=== PATIENT | female | born 1985 | race Caucasian/White ===

== ENCOUNTER 2016-11-16 16:38 | Emergency (ER) | payer MEDICAID ==
[2016-11-16 17:08] VITALS: BP 113/71
--- NOTE | 2016-11-16 17:17 | ER Document Report ---
ED Medical Screen (RME) - General Stated Complaint: RIGHT LEG PAIN, SWELLING Time seen by provider: 17:15 Mode of Arrival: Ambulatory Information source: Patient Notes: 31-year-old female presents to ED for pain in her right lower leg. She was out doing yard work and playing football with her son when she noticed a large blue area on her lower leg was very painful. The large bubble type area is gone but she still has a bruise swelling and pain to the right lower leg. Refuses Tylenol or Motrin at this time. Will apply a Anson wrap.. TRAVEL OUTSIDE OF THE U[place] IN LAST 30 DAYS: No - Related Data Allergies/Adverse Reactions: Penicillins Allergy (Verified 12/21/15 14:04) Past Medical History Musculoskeltal Medical History: Reports Hx Arthritis Past Surgical History: Reports: Hx Section - X2 Physical Exam - Vital signs Vitals: Temp Pulse Resp BP Pulse Ox 98.6 F 97 14 113/71 98 11/16/16 17:07 11/16/16 17:07 11/16/16 17:07 11/16/16 17:07 11/16/16 17:07 Course - Vital Signs Vital signs: Temp Pulse Resp BP Pulse Ox 98.6 F 97 14 113/71 98 11/16/16 17:07 11/16/16 17:07 11/16/16 17:07 11/16/16 17:07 11/16/16 17:07
== END 2016-11-16 17:58 | disposition left against medical advice (07) ==
LOC: ER 16:38
DX: Z53.9 Procedure and treatment not carried out, unspecified reason (principal); M79.604 Pain in right leg; M79.89 Other specified soft tissue disorders
CPT/HCPCS: 99281

== ENCOUNTER 2017-02-20 22:43 | Emergency (ER) | payer MEDICAID ==
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
[2017-02-21 01:47] VITALS: BP 107/59
--- NOTE | 2017-02-21 17:45 | EKG REPORT ---
SEVERITY:- NORMAL ECG - SINUS RHYTHM : Confirmed by: Karen Conde MD 21-Feb-2017 17:44:48
== END 2017-02-21 01:45 | disposition home or self-care (01) ==
LOC: ER 22:43
DX: T75.4XXA Electrocution, initial encounter (principal); R52 Pain, unspecified; R53.1 Weakness; Z87.891 Personal history of nicotine dependence; M25.512 Pain in left shoulder; Y33.XXXA Other specified events, undetermined intent, initial encounter
CPT/HCPCS: 93005; 93010; 99284

== ENCOUNTER 2017-09-27 20:33 | Emergency (ER) | payer MEDICAID ==
[2017-09-27] MEDS ORDERED: RINGERS SOLUTION,LACTATED 1,000 ML IV ONE ×2 (20:43→21:27)
[2017-09-27] MEDS ORDERED: ONDANSETRON HCL INJ/PF 4 MG/2 ML SDV IV ONE (20:45)
[2017-09-27 21:00] LABS: VENOUS BLOOD BASE EXCESS -1.3 mmol/L; VENOUS BLOOD HCO3 23.4 mmol/L (20-32); VENOUS BLOOD PCO2 39.1 mmHg (35-63); VENOUS BLOOD PH 7.39 (7.30-7.42)
[2017-09-27 21:05] LABS: ABSOLUTE EOSINOPHILS # (AUTO) 0.1 10^3/uL (0.0-0.6); ABSOLUTE LYMPHOCYTES (AUTO) 2.1 10^3/uL (0.5-4.7); ABSOLUTE MONOCYTES (AUTO) 0.5 10^3/uL (0.1-1.4); ABSOLUTE NEUT (AUTO) 3.1 10^3/uL (1.7-8.2); BASOPHILS % (AUTO) 0.7 % (0-2); EOSINOPHILS % (AUTO) 1.4 % (0-6); HEMATOCRIT 37.5 % (36.0-47.0); HEMOGLOBIN 12.5 g/dL (12.0-15.5); LYMPHOCYTES % (AUTO) 35.7 % (13-45); MEAN CORPUSCULAR HEMOGLOBIN 27.5 pg (27.0-33.4); MEAN CORPUSCULAR HGB CONC 33.3 g/dL (32.0-36.0); MEAN CORPUSCULAR VOLUME 83 fl (80-97); MONOCYTES % (AUTO) 8.1 % (3-13); RED BLOOD COUNT 4.54 10^6/uL (3.72-5.28); RED CELL DISTRIBUTION WIDTH 14.7 % (11.5-14.0); SEGMENTED NEUTROPHILS % (AUTO) 54.1 % (42-78); WHITE BLOOD COUNT 5.8 10^3/uL (4.0-10.5)
--- NOTE | 2017-09-27 21:15 | ER Document Report ---
ED General - General Stated Complaint: POSSIBLE OVERDOSE Time Seen by Provider: 09/27/17 20:42 TRAVEL OUTSIDE OF THE [place].S[place] IN LAST 30 DAYS: No - HPI Patient complains to provider of: Suicide attempt by overdose Notes: Patient coming in after ingesting approximately 30 tabs of 50 mg tablets of tramadol approximately 1 hour prior to EMS arrival. Upon EMS arrival patient requesting charcoal. Patient states that she is severely depressed and therefore she took the pills. Patient has history of depression in the past. Upon my evaluation patient is complaining of nausea however refusing medications for nausea. Denies any fever chills. According to EMS there was a suicide note - Related Data Allergies/Adverse Reactions: Penicillins Allergy (Verified 11/16/16 17:15) Past Medical History - Social History Smoking Status: Unknown if Ever Smoked Family History: Reviewed & Not Pertinent Renal/ Medical History: Denies: Hx Peritoneal Dialysis Musculoskeltal Medical History: Reports Hx Arthritis Past Surgical History: Reports: Hx Section - X2 - Immunizations Immunizations up to date: Yes Hx Diphtheria, Pertussis, Tetanus Vaccination: Yes Review of Systems - Review of Systems Constitutional: No symptoms reported EENT: No symptoms reported Cardiovascular: No symptoms reported Respiratory: No symptoms reported Gastrointestinal: No symptoms reported Genitourinary: No symptoms reported Female Genitourinary: No symptoms reported Musculoskeletal: No symptoms reported Skin: No symptoms reported Hematologic/Lymphatic: No symptoms reported Neurological/Psychological: Depression -: Yes All other systems reviewed and negative Physical Exam - Vital signs Vitals: Resp Pulse Ox 30 H 100 09/27/17 20:40 09/27/17 20:40 Interpretation: Normal - General General appearance: Appears well, Alert - HEENT Head: Normocephalic, Atraumatic Eyes: Normal Pupils: PERRL - Respiratory Respiratory status: No respiratory distress Chest status: Nontender Breath sounds: Normal Chest palpation: Normal - Cardiovascular Rhythm: Regular Heart sounds: Normal auscultation Murmur: No - Abdominal Inspection: Normal Distension: No distension Bowel sounds: Normal Tenderness: Nontender Organomegaly: No organomegaly - Back Back: Normal, Nontender - Extremities General upper extremity: Normal inspection, Nontender, Normal color, Normal ROM , Normal temperature General lower extremity: Normal inspection, Nontender, Normal color, Normal ROM , Normal temperature, Normal weight bearing. No: Navid's sign - Neurological Neuro grossly intact: Yes Cognition: Normal Orientation: AAOx4 Katja Coma Scale Eye Opening: Spontaneous Superior Coma Scale Verbal: Oriented Katja Coma Scale Motor: Obeys Commands Katja Coma Scale Total: 15 Speech: Normal Motor strength normal: LUE, RUE, LLE, RLE Sensory: Normal - Psychological Associated symptoms: Flat affect - Skin Skin Temperature: Warm Skin Moisture: Dry Skin Color: Normal Course - Re-evaluation Re-evalutation: 09/27/17 21:15 Poison control was contacted by EMS. Once we have laboratory studies returned we will contact poison control again. More likely patient will be held in ER and monitored. Once monitoring period is over patient patient will be medically cleared for psychiatric evaluation. - Vital Signs Vital signs: Temp Pulse Resp BP Pulse Ox 12 105/57 L 98 09/27/17 22:01 09/27/17 22:01 09/27/17 22:01 - Laboratory Result Diagrams: 09/27/17 20:48 09/27/17 20:48 Laboratory results interpreted by me: 09/27/17 09/27/17 09/27/17 20:48 20:48 22:02 RDW 14.7 H Sodium 149.6 H Chloride 112 H Glucose 64 L POC Glucose 114 H Salicylates < 1.0 L Acetaminophen < 10 L Discharge - Discharge Clinical Impression: Suicide attempt by substance overdose, Depression
[2017-09-27 21:21] LABS: ALANINE AMINOTRANSFERASE 24 U/L (9-52); ALBUMIN 4.5 g/dL (3.5-5.0); ALCOHOL 135 mg/dL (NONE DETECTED); ALKALINE PHOSPHATASE 56 U/L (38-126); ANION GAP 15 (5-19); ASPARTATE AMINO TRANSFERASE 19 U/L (14-36); BILIRUBIN,DIRECT 0.2 mg/dL (0.0-0.4); BILIRUBIN,TOTAL 0.2 mg/dL (0.2-1.3); BLOOD UREA NITROGEN 9 mg/dL (7-20); CALCIUM 9.7 mg/dL (8.4-10.2); CARBON DIOXIDE 23 mmol/L (22-30); CHLORIDE 112 mmol/L (98-107); CREATININE RESULT 0.98 mg/dL (0.52-1.25); GLUCOSE 64 mg/dL (75-110); POTASSIUM 3.9 mmol/L (3.6-5.0); SODIUM 149.6 mmol/L (137-145); TOTAL PROTEIN 6.9 g/dL (6.3-8.2)
[2017-09-27] MEDS ORDERED: DEXTROSE 50%-WATER 25 GM/50 ML DISP.SYRIN IV ONE (21:26)
[2017-09-27 23:10] LABS: APPEARANCE,URINE CLEAR; BILIRUBIN,URINE NEGATIVE (NEGATIVE); GLUCOSE, URINE 50 mg/dL (NEGATIVE); KETONES,URINE NEGATIVE (NEGATIVE); LEUKOCYTE ESTERASE,URINE NEGATIVE (NEGATIVE); NITRITE,URINE NEGATIVE (NEGATIVE); PROTEIN,URINE NEGATIVE (NEGATIVE); URINE SPECIFIC GRAVITY 1.013; UROBILINOGEN,URINE NEGATIVE mg/dL (<2.0)
[2017-09-27 23:23] LABS: URINE BARBITURATES SCREEN NEGATIVE; URINE METHADONE SCREEN NEGATIVE; URINE OPIATES LOW NEGATIVE; URINE PHENCYCLIDINE SCREEN NEGATIVE
--- NOTE | 2017-09-28 06:03 | EKG REPORT ---
SEVERITY:- NORMAL ECG - SINUS RHYTHM : Confirmed by: Colin Pemberton MD 28-Sep-2017 06:03:01
--- NOTE | 2017-09-28 09:25 | ER Document Report ---
Doctor's Note Notes: 09/28/17 09:24 Medical rounds: Chart reviewed and patient interviewed briefly. Vital signs are normal. Laboratory values are satisfactory. Patient is alert, oriented, and cooperative. She denies any somatic complaints, complains only that she wants a cigarette. Nicotine patch was offered and she refused. Awaiting results of psychosocial evaluation and recommendations for disposition. The patient is medically stable at this time.
[2017-09-28 10:58] VITALS: BP 106/64
--- NOTE | 2017-09-28 12:01 | PSYCHOLOGICAL NOTE ---
Psych Note - Psych Note Psych Note: Reason for Consult: Attempted Overdose Consent Permissions: Barb, family friend, Stephen, ex-boyfriend, Patient is a 32-year-old female brought to the Emergency Department by EMS for an attempted overdose. Patient stated she was dealing with "some things from my past" and told her ex-boyfriend she needed some space. She reported the ex- boyfriend kept sending her child to the closed bedroom door to "bang on the door." Patient reported she drank a bottle of wine and took a handful of Tramadol. Patient indicated she was given a prescription for Tramadol after dental surgery she had at the end of August. She reported a history of pill use but she had been clean for six years until she received the pain medication for the surgery. She stated she has been drinking alcohol for the past four months since the end of her six and a half year relationship with her boyfriend. She reported drinking a bottle of wine per day for the last two days. She reported prior to that she was drinking once a week for the last four months. She reported a previous suicide attempt following the of her first child where she took pills then contacted EMS and was administered charcoal. She also reported when she was in the she was hospitalized at an inpatient facility in [place], [place] for a supposed overdose. She denied that event was an attempted suicide, saying she took a handful of Tylenol to get out of PT. Patient reported she currently has a psychiatric provider, [facility], for the last 7-8 months. She stated she went to [facility] "years ago " and was on Seroquel and Zoloft in 2006. Patient denies any current psychiatric medications. Patient stated she is not interested in being prescribed any psychiatric medications. Patient also stated she has completed "testing" at [facility] and will receive the results of said testing in October. She indicated she has problems "staying focused" and that's what the testing was about. Patient reported she has three children, two of which live with their father and one of which lives with her. She identified her live in ex-boyfriend as the father of the child in the home. Patient reported the child was at the home during the attempted overdose. Patient was alert and oriented to person, place, time and circumstance. Mood was subdued with congruent affect. Patient denied suicidal ideation, intent or plan. She did not appear to be responding to internal stimuli as evidenced by maintaining eye contact, staying on topic and answering questions appropriately when asked. Thought processes were rational, organized and linear. Conversational speech was within normal limits for rate, tone and prosody. Intellectual abilities were estimated to be in the average range. Insight, judgment and impulse control were fair. Patient stated if she felt overwhelmed and sad again she would, "stay sober and call a crisis line." Patient gave verbal consent to speak to her family friend who she called her adoptive mom. Provider was able to speak with the family friend. Friend stated she had last texted the patient Thursday about the patient and her child coming to her house for [place]. The friend stated she wasn't sure if that was going to be the plan because of issues with the patient's ex-boyfriend and the ex-boyfriend having pneumonia. The friend stated she got a call Thursday to come fruit or nut picker the patient's child. She had not had any contact between the texted conversation Thursday and the ex-boyfriend's call Thursday. The friend stated she has noticed some changes in the patient within the last few months. The friend reported the patient has gone from being "domestic" and wanting to stay home to socializing outside of the home and online. She stated the patient has started dating "strangers" she has met online. The friend stated she has observed the patient drinking alcohol within the past month and using the pain medication she has for tooth pain. The friend stated she has not observed the patient overusing the pain medications. The friend stated she has no concerns for the child being in the home mainly because the patient's child is always welcome at her home if there is strife at the patient' s home. The friend indicated the patient can stay with her for the next 24 hours subsequent to discharge. Due to the attempted overdose in the home, with the minor child present, this provider contacted the Department of Business Office Coordinator interventional radiology technologist health social work professor. Provider reported attempted overdose with demographic information and name/age of child in the home. 1. 296.20 (F32.9) Unspecified Depressive Disorder 2. Poly-substance Related Use Disorder 305.00 (F10.10) Alcohol Use Disorder, Mild 305.50 (F11.10) Opioid Use Disorder, Mild Plan/Impression: Patient is psychiatrically cleared for discharge. Recommendation to rescind IVC. Patient does not meet [place] G.S 122C IVC criteria. Patient denied suicidal ideation, intent or plan at this time. Patient evidenced future thinking by being able to identify how to deal with becoming overwhelmed in the future. There was no observed psychosis. Provided patient with outpatient resources including Mobile Crisis contact information highlighted. Patient was given recovery resource information. Patient was encouraged to follow up with her established outpatient provider. Dr. Armstrong was consulted in the care and management of this patient. ED physician in agreement with recommendation and disposition.
== END 2017-09-28 10:58 | disposition home or self-care (01) ==
LOC: ER 20:33
DX: T40.4X2A Poisoning by other synthetic narcotics, intentional self-harm, initial encounter (principal); F32.9 Major depressive disorder, single episode, unspecified; R11.0 Nausea; F19.10 Other psychoactive substance abuse, uncomplicated
CPT/HCPCS: 93005; 99285; 96375; 96365; 96366; 36415; 82962; 80307 ×4; 84703; 85025; 80053; 81001; 82803; 93010; J3490; J2405; J7120

== ENCOUNTER → 2018-01-05 | Outpatient (CLI) | payer MEDICAID ==
--- NOTE | 2018-01-05 18:31 | WOMENS IMAGING REPORT ---
EXAM DESCRIPTION: BILAT DIAGNOSTIC MAMMO W/CAD; U/S BREAST UNILATERAL, COMPL COMPLETED DATE/TIME: 01/05/2018 10:58 am; 01/05/2018 12:54 pm REASON FOR STUDY: BREAST PAIN; N64.4; LT BREAST LUMPS N64.4 MASTODYNIA COMPARISON: None. TECHNIQUE: Standard craniocaudal and mediolateral oblique views of each breast recorded using digita l acquisition. Left breast 90 mediolateral view was obtained. Left breast cone compression CC and MLO orientation images were also obtained. Left breast ultrasound was performed. LIMITATIONS: None. FINDINGS: RIGHT BREAST MASSES: No suspicious masses. CALCIFICATIONS: No new or suspicious calcifications. ARCHITECTURAL DISTORTION: None. DEVELOPING DENSITY: None. ASYMMETRY: None noted. OTHER: No other significant findings. LEFT BREAST MASSES: No suspicious masses. CALCIFICATIONS: No new or suspicious calcifications. ARCHITECTURAL DISTORTION: None. DEVELOPING DENSITY: None. ASYMMETRY: None noted. OTHER: No other significant finding. Read with the assistance of CAD: .[facility] - R2 Cenova Version 1.3 .[facility] Imaging - R2 Cenova Version 1.3 .[facility] - R2 Cenova Version 2.4 .[facility] - R2 Cenova Version 2.4 .[facility] - R2 Converting Supervisor Version 9.2 Left breast ultrasound: Ultrasound of the left breast was performed as well as the left axilla. There are no discrete cystic or solid masses. No worrisome acoustic absorption. No focal findings. IMPRESSION: No mammographic evidence for malignancy right breast. No mammographic or sonographic evidence for malignancy left breast. BREAST DENSITY: c. The breasts are heterogeneously dense, which may obscure small masses. BIRAD: 1 Negative. RECOMMENDATION: RECOMMENDED FOLLOW UP: Please begin yearly bilateral screening mammography/ tomosynt hesis at age 40. Patient 11 begin screening sooner, it is she is found to have an increased lifetime risk of breast cancer using the Aleyda model. SPECIFIC INTERVENTION/IMAGING/CONSULTATION RECOMMENDED:No additional intervention/ imaging/consultati on needed at this time. COMMUNICATION:Patient notified by letter COMMENT: The patient has been notified of the results by letter per MQSA requirements. Additional no tification policies are in place for contacting patient with suspicious or incomplete findings. Quality ID #[id number]: The [employer] recommends an annual screening mammogram for women aged 40 years or over. This facility utilizes a reminder system to ensure that all patients receive reminder letters, and/or direct phone calls for appointments. This includes reminders for routine scr eening mammograms, diagnostic mammograms, or other Breast Imaging Interventions when appropriate. Th is patient will be placed in the appropriate reminder system. The [employer] (ACR) has developed recommendations for screening MRI of the breast s in certain patient populations, to be used in conjunction with mammography. Breast MRI surveillanc e may be appropriate for women with more than 20% lifetime risk of developing breast cancer as deter mined by genetic testing, significant family history of the disease, or history of mantle radiation f or Hodgkins Disease. ACR Practice Guidelines 2008. TECHNICAL DOCUMENTATION: FINDING NUMBER: (1) ASSESSMENT: (1) JOB ID: [id number] [employer]- All Rights Reserved Reading location - IP/workstation name: [id number]
--- NOTE | 2018-01-05 18:31 | WOMENS IMAGING REPORT ---
EXAM DESCRIPTION: BILAT DIAGNOSTIC MAMMO W/CAD; U/S BREAST UNILATERAL, COMPL COMPLETED DATE/TIME: 01/05/2018 10:58 am; 01/05/2018 12:54 pm REASON FOR STUDY: BREAST PAIN; N64.4; LT BREAST LUMPS N64.4 MASTODYNIA COMPARISON: None. TECHNIQUE: Standard craniocaudal and mediolateral oblique views of each breast recorded using digita l acquisition. Left breast 90 mediolateral view was obtained. Left breast cone compression CC and MLO orientation images were also obtained. Left breast ultrasound was performed. LIMITATIONS: None. FINDINGS: RIGHT BREAST MASSES: No suspicious masses. CALCIFICATIONS: No new or suspicious calcifications. ARCHITECTURAL DISTORTION: None. DEVELOPING DENSITY: None. ASYMMETRY: None noted. OTHER: No other significant findings. LEFT BREAST MASSES: No suspicious masses. CALCIFICATIONS: No new or suspicious calcifications. ARCHITECTURAL DISTORTION: None. DEVELOPING DENSITY: None. ASYMMETRY: None noted. OTHER: No other significant finding. Read with the assistance of CAD: .[facility] - R2 Cenova Version 1.3 .[facility] Imaging - R2 Cenova Version 1.3 .[facility] - R2 Cenova Version 2.4 .[facility] - R2 Cenova Version 2.4 .[facility] - R2 Short Haul Driver Version 9.2 Left breast ultrasound: Ultrasound of the left breast was performed as well as the left axilla. There are no discrete cystic or solid masses. No worrisome acoustic absorption. No focal findings. IMPRESSION: No mammographic evidence for malignancy right breast. No mammographic or sonographic evidence for malignancy left breast. BREAST DENSITY: c. The breasts are heterogeneously dense, which may obscure small masses. BIRAD: 1 Negative. RECOMMENDATION: RECOMMENDED FOLLOW UP: Please begin yearly bilateral screening mammography/ tomosynt hesis at age 40. Patient 11 begin screening sooner, it is she is found to have an increased lifetime risk of breast cancer using the Aleyda model. SPECIFIC INTERVENTION/IMAGING/CONSULTATION RECOMMENDED:No additional intervention/ imaging/consultati on needed at this time. COMMUNICATION:Patient notified by letter COMMENT: The patient has been notified of the results by letter per MQSA requirements. Additional no tification policies are in place for contacting patient with suspicious or incomplete findings. Quality ID #[id number]: The [employer] recommends an annual screening mammogram for women aged 40 years or over. This facility utilizes a reminder system to ensure that all patients receive reminder letters, and/or direct phone calls for appointments. This includes reminders for routine scr eening mammograms, diagnostic mammograms, or other Breast Imaging Interventions when appropriate. Th is patient will be placed in the appropriate reminder system. The [employer] (ACR) has developed recommendations for screening MRI of the breast s in certain patient populations, to be used in conjunction with mammography. Breast MRI surveillanc e may be appropriate for women with more than 20% lifetime risk of developing breast cancer as deter mined by genetic testing, significant family history of the disease, or history of mantle radiation f or Hodgkins Disease. ACR Practice Guidelines 2008. TECHNICAL DOCUMENTATION: FINDING NUMBER: (1) ASSESSMENT: (1) JOB ID: [id number] [employer]- All Rights Reserved Reading location - IP/workstation name: [facility]-[email or web address]
== END ==
LOC: WI 10:44
PROVIDERS: ATTEND Physician Assistant
DX: N64.4 Mastodynia (principal); N63.0 Unspecified lump in unspecified breast
CPT/HCPCS: 76641; 77066

== ENCOUNTER 2018-02-11 17:39 | Emergency (ER) | payer MEDICAID ==
[2018-02-11] MEDS ORDERED: ONDANSETRON HCL INJ/PF 4 MG/2 ML SDV IV ONE (18:18)
[2018-02-11] MEDS ORDERED: KETOROLAC TROMETHAMINE INJ/PF 30 MG/1 ML SDV IV ONE (18:18)
[2018-02-11] MEDS ORDERED: FENTANYL CITRATE INJ/PF 100 MCG/2 ML AMPUL IV ONE (18:19)
--- NOTE | 2018-02-11 18:20 | ER Document Report ---
ED Medical Screen (RME) - General Chief Complaint: Abdominal Pain Stated Complaint: LOW RIGHT SIDE PAIN Time Seen by Provider: 02/11/18 18:10 Notes: Patient is a 32-year-old female, past medical history of ovarian cysts, presents with 1 day of worsening right lower quadrant abdominal pain and nausea. Says the pain is worse when moving. Also with some dysuria. PE: Bent over while in wheelchair, tenderness over RLQ (exam limited in PIT) I have greeted and performed a rapid initial assessment of this patient. A comprehensive ED assessment and evaluation of the patient, analysis of test results and completion of the medical decision making process will be conducted by additional ED providers. TRAVEL OUTSIDE OF THE [place] IN LAST 30 DAYS: No - Related Data Allergies/Adverse Reactions: Penicillins Allergy (Verified 09/27/17 23:54) Past Medical History - Social History Chew tobacco use (# tins/day): No Frequency of alcohol use: None Drug Abuse: None Renal/ Medical History: Denies: Hx Peritoneal Dialysis Musculoskeltal Medical History: Reports Hx Arthritis Psychiatric Medical History: Reports: Hx Depression Past Surgical History: Reports: Hx Section - X2 - Immunizations Immunizations up to date: Yes Hx Diphtheria, Pertussis, Tetanus Vaccination: Yes Physical Exam - Vital signs Vitals: Temp Pulse Resp BP Pulse Ox 98.7 F 75 18 115/70 97 02/11/18 18:01 02/11/18 18:01 02/11/18 18:01 02/11/18 18:01 02/11/18 18:01 Course - Vital Signs Vital signs: Temp Pulse Resp BP Pulse Ox 98.7 F 75 18 115/70 97 02/11/18 18:01 02/11/18 18:01 02/11/18 18:01 02/11/18 18:01 02/11/18 18:01 Doctor's Discharge - Discharge Referrals: KEEGAN ABARCA PA-C [Primary Care Provider] - Follow up as needed
[2018-02-11 18:52] LABS: ABSOLUTE EOSINOPHILS # (AUTO) 0.2 10^3/uL (0.0-0.6); ABSOLUTE LYMPHOCYTES (AUTO) 1.7 10^3/uL (0.5-4.7); ABSOLUTE MONOCYTES (AUTO) 0.6 10^3/uL (0.1-1.4); ABSOLUTE NEUT (AUTO) 4.6 10^3/uL (1.7-8.2); BASOPHILS % (AUTO) 0.7 % (0-2); EOSINOPHILS % (AUTO) 2.8 % (0-6); HEMATOCRIT 36.5 % (36.0-47.0); HEMOGLOBIN 12.2 g/dL (12.0-15.5); LYMPHOCYTES % (AUTO) 24.1 % (13-45); MEAN CORPUSCULAR HGB CONC 33.3 g/dL (32.0-36.0); MEAN CORPUSCULAR VOLUME 81 fl (80-97); MONOCYTES % (AUTO) 7.9 % (3-13); PLATELET COUNT 172 10^3/uL (150-450); RED BLOOD COUNT 4.51 10^6/uL (3.72-5.28); RED CELL DISTRIBUTION WIDTH 13.9 % (11.5-14.0); SEGMENTED NEUTROPHILS % (AUTO) 64.5 % (42-78); TOTAL CELLS COUNTED % (AUTO) 100 %; WHITE BLOOD COUNT 7.1 10^3/uL (4.0-10.5)
[2018-02-11 19:17] LABS: ALANINE AMINOTRANSFERASE 18 U/L (9-52); ALBUMIN 4.2 g/dL (3.5-5.0); ALKALINE PHOSPHATASE 54 U/L (38-126); ANION GAP 14 (5-19); ASPARTATE AMINO TRANSFERASE 26 U/L (14-36); BILIRUBIN,DIRECT 0.1 mg/dL (0.0-0.4); BILIRUBIN,TOTAL 0.1 mg/dL (0.2-1.3); BLOOD UREA NITROGEN 13 mg/dL (7-20); CALCIUM 9.6 mg/dL (8.4-10.2); CARBON DIOXIDE 25 mmol/L (22-30); CHLORIDE 107 mmol/L (98-107); GLUCOSE 77 mg/dL (75-110); POTASSIUM 4.1 mmol/L (3.6-5.0); SODIUM 145.5 mmol/L (137-145); TOTAL PROTEIN 6.8 g/dL (6.3-8.2)
--- NOTE | 2018-02-11 19:22 | RADIOLOGY REPORT (SQ) ---
EXAM DESCRIPTION: U/S NON OB PEL TV W/DOPPLER COMPLETED DATE/TIME: 02/11/2018 7:12 pm REASON FOR STUDY: right pelvic pain, Hx ovarian cysts LMP 01/24/2018 COMPARISON: None. TECHNIQUE: Dynamic and static grayscale images acquired of the pelvis via transvaginal approach and recorded on PACS. Additional selected color Doppler and spectral images recorded. LIMITATIONS: None. FINDINGS: UTERUS: Contour normal. No mass. ENDOMETRIAL STRIPE: No focal or generalized thickening. No masses. CERVIX: 3.3 cm. No nabothian cysts. RIGHT OVARY AND DOPPLER: Normal size. No worrisome masses. Normal arterial vascular flow without evid ence for torsion. LEFT OVARY AND DOPPLER: Normal size. No worrisome masses. 12 mm cyst. Normal arterial vascular flow without evidence for torsion. FREE FLUID: Small amount of free fluid is present in the cul-de-sac. OTHER: No other significant finding. MEASUREMENTS: UTERUS: 7.7 x 5.4 x 6.6 cm. ENDOMETRIAL STRIPE: 5 mm. RIGHT OVARY: 2.3 x 2.1 x 2.1 cm. LEFT OVARY: 2.7 x 2.2 x 2 cm. IMPRESSION: NORMAL TRANSVAGINAL PELVIC ULTRASOUND. TECHNICAL DOCUMENTATION: JOB ID: [id number] [employer]- All Rights Reserved Rev-02/19 Reading location - IP/workstation name: [email or web address]
[2018-02-11 21:09] LABS: APPEARANCE,URINE SLIGHTLY-CLOUDY; BILIRUBIN,URINE SMALL (NEGATIVE); COLOR,URINE YELLOW; GLUCOSE, URINE NEGATIVE (NEGATIVE); KETONES,URINE TRACE mg/dL (NEGATIVE); LEUKOCYTE ESTERASE,URINE LARGE (NEGATIVE); NITRITE,URINE NEGATIVE (NEGATIVE); PROTEIN,URINE 100 mg/dL (NEGATIVE); URINE SPECIFIC GRAVITY 1.034
[2018-02-11] MEDS ORDERED: SULFAMETHOXAZOLE/TRIMETHOPRIM 800-160 MG TABLET PO ONE (21:13)
--- NOTE | 2018-02-11 21:20 | ER Document Report ---
ED General - General Chief Complaint: Abdominal Pain Stated Complaint: LOW RIGHT SIDE PAIN Time Seen by Provider: 02/11/18 18:10 TRAVEL OUTSIDE OF THE [place] IN LAST 30 DAYS: No - HPI Patient complains to provider of: Right lower quadrant abdominal pain Notes: Patient coming in for a lower quadrant abdominal pain nausea denies any fevers or chills. Patient is concerned she has an ovarian cyst or urinary tract infection. Patient states dysuria. Patient upon my evaluation is lying in bed. Patient states that she is currently at this time unable to give a urine sample. Patient is somewhat reluctant stating that she knows she has a urinary tract infection. No vaginal bleeding or discharge. - Related Data Allergies/Adverse Reactions: Penicillins Allergy (Verified 09/27/17 23:54) Past Medical History - Social History Smoking Status: Current Every Day Smoker Chew tobacco use (# tins/day): No Frequency of alcohol use: None Drug Abuse: None Family History: Reviewed & Not Pertinent Patient has suicidal ideation: No Patient has homicidal ideation: No Renal/ Medical History: Denies: Hx Peritoneal Dialysis Musculoskeltal Medical History: Reports Hx Arthritis Psychiatric Medical History: Reports: Hx Depression Past Surgical History: Reports: Hx Section - X2 - Immunizations Immunizations up to date: Yes Hx Diphtheria, Pertussis, Tetanus Vaccination: Yes Review of Systems - Review of Systems Constitutional: No symptoms reported EENT: No symptoms reported Cardiovascular: No symptoms reported Respiratory: No symptoms reported Gastrointestinal: Abdominal pain Genitourinary: Dysuria Female Genitourinary: No symptoms reported Musculoskeletal: No symptoms reported Skin: No symptoms reported Hematologic/Lymphatic: No symptoms reported Neurological/Psychological: No symptoms reported -: Yes All other systems reviewed and negative Physical Exam - Vital signs Vitals: Temp Pulse Resp BP Pulse Ox 98.7 F 75 18 115/70 97 02/11/18 18:01 02/11/18 18:01 02/11/18 18:01 02/11/18 18:01 02/11/18 18:01 Interpretation: Normal - General General appearance: Appears well, Alert - HEENT Head: Normocephalic, Atraumatic Eyes: Normal Pupils: PERRL - Respiratory Respiratory status: No respiratory distress Chest status: Nontender Breath sounds: Normal Chest palpation: Normal - Cardiovascular Rhythm: Regular Heart sounds: Normal auscultation Murmur: No - Abdominal Inspection: Normal Distension: No distension Bowel sounds: Normal Tenderness: Tender - Mild tenderness palpation of lower abdomen Organomegaly: No organomegaly - Back Back: Normal, Nontender - Extremities General upper extremity: Normal inspection, Nontender, Normal color, Normal ROM , Normal temperature General lower extremity: Normal inspection, Nontender, Normal color, Normal ROM , Normal temperature, Normal weight bearing. No: Navid's sign - Neurological Neuro grossly intact: Yes Cognition: Normal Orientation: AAOx4 [place] Coma Scale Eye Opening: Spontaneous [place] Coma Scale Verbal: Oriented [place] Coma Scale Motor: Obeys Commands [place] Coma Scale Total: 15 Speech: Normal Motor strength normal: LUE, RUE, LLE, RLE Sensory: Normal - Psychological Associated symptoms: Normal affect, Normal mood - Skin Skin Temperature: Warm Skin Moisture: Dry Skin Color: Normal Course - Re-evaluation Re-evalutation: 02/11/18 23:07 Ultrasound performed showing a left ovarian cyst. Patient's urinalysis does show signs of urinary tract infection. No significant leukocytosis. Patient will be given a dose of Bactrim and sent home with Bactrim. - Vital Signs Vital signs: Temp Pulse Resp BP Pulse Ox 98.5 F 78 16 122/78 97 02/11/18 21:41 02/11/18 21:41 02/11/18 21:41 02/11/18 21:41 02/11/18 18:01 - Laboratory Result Diagrams: 02/11/18 18:40 02/11/18 18:40 Laboratory results interpreted by me: 02/11/18 02/11/18 18:40 20:43 Sodium 145.5 H Total Bilirubin 0.1 L Urine Protein 100 H Urine Ketones TRACE H Urine Blood MODERATE H Urine Bilirubin SMALL H Urine Urobilinogen 2.0 H Ur Leukocyte Esterase LARGE H Discharge - Discharge Clinical Impression: UTI (urinary tract infection) Qualifiers: Urinary tract infection type: site unspecified Hematuria presence: without hematuria Qualified Code(s): N39.0 - Urinary tract infection, site not specified Ovarian cyst Qualifiers: Laterality: left Qualified Code(s): N83.202 - Unspecified ovarian cyst, left side Condition: Stable Disposition: HOME, SELF-CARE Instructions: Ovarian Cyst ([facility]), Trimethoprim-Sulfa ([facility]), Urinary Tract Infection ([facility]) Additional Instructions: Your ultrasound shows a ovarian cyst on the left ovary. Your right ovary does not have an ovarian cyst. Your urinalysis does show signs of infection. We will send her urine for culture to make sure we have a on the right antibiotic. At this time we will start you on antibiotic called Bactrim. If her culture results returned showing that she would need a different antibiotic please make sure we have good contact information because we will call you approximately the next 48-72 hours. Take Tylenol for pain and fever. He may also take prescribed medication for pain and fever control. Return to ER symptoms worsen drink plenty of fluids Prescriptions: Ketorolac Tromethamine [Toradol 10 mg Tablet] 10 mg PO Q8HP PRN #20 tablet PRN Reason: Promethazine HCl [Phenergan 25 mg Tablet] 1 - 2 tab PO Q6H PRN #15 tablet PRN Reason: Sulfamethoxazole/Trimethoprim [Bactrim Ds Tablet] 1 each PO BID #20 tablet Referrals: KEEGAN ABARCA PA-C [Primary Care Provider] - Follow up in 3-5 days
[2018-02-11 22:03] VITALS: BP 122/78
== END 2018-02-11 21:50 | disposition home or self-care (01) ==
LOC: ER 17:39
DX: N83.202 Unspecified ovarian cyst, left side (principal); N39.0 Urinary tract infection, site not specified; R10.31 Right lower quadrant pain; R11.0 Nausea; F17.200 Nicotine dependence, unspecified, uncomplicated; Z88.0 Allergy status to penicillin
CPT/HCPCS: 99284; 96374; 96375; 36415; 87086; 84703; 85025; 87088; 80053; 81001; 87186; 76830; 93976; J3010; J1885; J2405; J3490